=== PATIENT | female | born 1995 | race Hispanic/Latino ===

== ENCOUNTER 2020-11-18 13:57 | Emergency (ER) | payer BC ==
[2020-11-18] MEDS ORDERED: Dexamethasone 10 MG/ML VIAL ONE (15:17)
[2020-11-18] MEDS ORDERED: Azithromycin 500 MG VIAL ONE (15:17)
[2020-11-18] MEDS ORDERED: cefTRIAXone\\ROCEPHIN 2 GM VIAL ONE (15:17)
[2020-11-18 15:25] LABS: #Lymphocytes 1.4 thou/uL (1.20-3.40); #Monocytes 0.4 thou/uL (0.11-0.59); #Neutrophils 2.9 thou/uL (1.40-6.50); %Basophils 0.9 % (0.0-1.0); %Lymphocytes 29.7 % (21.0-51.0); %Monocytes 8.6 % (0.0-10.0); %Neutrophils 60.9 % (42.0-75.0); Hemoglobin 14.5 g/dL (12.0-16.0); Mean Corpuscular Hemoglobin 30.5 pg (27.0-31.0); Mean Corpuscular Volume 89.8 fL (78.0-98.0); Mean Platelet Volume 7.6 fL (7.4-10.4); Platelet Count 151 thou/uL (130-400); RBC Distribution Width 12.6 % (11.5-14.5); Red Blood Cell (RBC) Count 4.77 mill/uL (4.20-5.40); White Blood Cell (WBC) Count 4.8 thou/uL (4.8-10.8)
[2020-11-18 15:41] LABS: ALT (SGPT) 225 U/L (8-55); AST (SGOT) 266 U/L (5-34); Albumin 3.9 g/dL (3.5-5.0); Alkaline Phosphatase 67 U/L (40-110); Anion Gap 15 mmol/L (10-20); BUN (Urea Nitrogen) 7 mg/dL (7.0-18.7); Bilirubin, Total 0.5 mg/dL (0.2-1.2); Calc. Creatinine Clearance 0 mL/min (70-130); Calcium 8.8 mg/dL (7.8-10.44); Carbon Dioxide 22 mmol/L (22-29); Chloride 105 mmol/L (98-107); Globulin 3.4 g/dL (2.4-3.5); Glucose 98 mg/dL (70-105); Potassium 3.8 mmol/L (3.5-5.1); Protein, Total 7.3 g/dL (6.0-8.3); Sodium 138 mmol/L (136-145)
[2020-11-18 16:27] LABS: SARS-CoV-2 NAA Rapid Test DETECTED (NotDetected)
== END 2020-11-18 17:24 | disposition home or self-care (01) ==
LOC: ERS 13:57
DX: U07.1 COVID-19 (principal); J12.82 Pneumonia due to coronavirus disease 2019; R74.8 Abnormal levels of other serum enzymes
CPT/HCPCS: 36415; 71045; 76705; 80053; 83605; 85025; 96365; 96366; 96368; 96375; J0456; J0696; J1100; U0002; U0005